=== PATIENT | male | born 1965 | race Caucasian/White ===

== ENCOUNTER 2017-06-14 15:31 | Emergency (ER) | payer OTHER ==
--- NOTE | 2017-06-14 15:57 | ED Physician Chart ---
ED Chief Complaint/HPI - Patient Information Date Seen:: 06/14/17 Time Seen:: 15:56 Chief Complaint:: INFECTION LEFT HAND BEGAN 1 WK AGO History of Present Illness:: this 51-year-old male sustained a minor paper cut to the palm of his left hand one week ago. Over the past 2 to 3 days the patient has experienced increased swelling and pain in his left hand. It extends to just above the wrist. He rates the pain as a 7/10 severity and exacerbating factors include pressure over the palm. He's uncertain if he has had any fever and denies chills or sweats. His past medical history is for borderline diabetes and hypertension. Historian:: Patient ED Review of Systems - Review of Systems General/Constitutional: No chills, No weakness, No diaphoresis, Edema ( EDEMA OF THE LEFT HAND EXTENDING TO JUST ABOVE THE WRIST.) Skin: Skin lesions ( Tiny cut to the center of the left palm. 2 mm in length.) Head: No headache Eyes: No loss of vision, No pain, No diplopia Neck: Swelling Cardio Vascular: No chest pain, No PND Pulmonary: No SOB, No cough, No sputum GI: No nausea, No vomiting, No diarrhea ( Patient is uncertain if he has had any fever.), No pain G/U: No dysuria Endocrine: Polyuria, Polydipsia Psychiatric: No prior psych history, No depression, No suicidal ideation Hematopoietic: No bruising, No lymphadenopathy Allergic/Immuno: No urticaria, No angioedema Neurological: No syncope, Weakness ( Weakness is limited to the left blocker automatic.), No paresthesia, No seizure, No dizziness, No confusion Family Medical History - Family Member Mother Hx Family Hypertension: Yes Hx Family Diabetes: Yes ED Physical Exam - Physical Examination General/Constitutional: Well-developed, well-nourished, Alert, Non-toxic appearing, Ambulatory Other Gen/Cons comments:: Appears to be in mild distress from his complained of pain in the left hand. Head: Atraumatic Eyes: Lids, conjuctiva normal, PERRL, EOMI Other Skin comments:: The skin is normal except for erythema and swelling involving the left hand. There was minimal expansion of the erythema proximal to the wrist. On palpation there is tenderness in the palm and over the flexor surfaces of the second through the fifth digits. ENMT: External ears, nose nl, Nasal exam nl, Lips, teeth, gums nl, Oropharynx nl , Tonsils nl Respiratory: Nl effort/Exclusion, Clear to Auscultation, No Wheeze/Rhonchi/Rales Cardio Vascular: No murmur, gallop, rubs, NL S1 S2 Other Cardio Vascular comments:: Impulses in all four extremities. GI: No tenderness/rebounding/guarding, No organomegaly, No hernia, Nondistended , No mass/bruits : No CVA tenderness Other Extremities comments:: See above description of the left hand and wrist area. Neuro/Psych: Alert/oriented, Normal sensory exam, Judgement/insight normal, Mood normal, Normal gait, No focal deficits Misc: Normal back, No paraspinal tenderness ED Labs/Radiology/EKG Results - Lab Results Results: Laboratory Tests 06/14/17 06/14/17 06/14/17 16:16 16:16 16:16 WBC 13.6 H RBC 5.45 Hgb 15.3 Hct 45.1 MCV 82.8 MCH 28.0 MCHC Differential 33.9 RDW 12.1 Plt Count 240 MPV 8.5 Neutrophils % 81.5 H Lymphocytes % 11.0 L Monocytes % 6.5 Eosinophils % 0.8 Basophils % 0.2 Sodium 129 L Potassium 4.7 Chloride 97 L Carbon Dioxide 28.8 Anion Gap 7.9 BUN 25 Creatinine 1.2 Est GFR ( Amer) > 60.0 Est GFR (Non-Af Amer) > 60.0 BUN/Creatinine Ratio 20.8 Glucose 506 H* Whole Bld Lactic Acid 1.48 Calcium 8.9 HYPERGLYCEMIA, MARKED. HYPONATREMIA ( Probable pseudo-hyponatremia due to the high glucose level.) BC shows a moderate leukocytosis of 13.6 K. No anemia is present and platelets appear normal. Patients lactic acid is within the normal range. X-ray studies of the hand were not obtained. ED Assessment - Assessment General Assessment: CASE SUMMARY: this 51-year-old right-handed male presents with swelling and pain in his left hand and wrist that began approximately 2 to 3 days ago. One week ago the patient had a minor paper cut to the palm of the left hand. On physical examination he has erythema involving the palm and tenderness in the palm and along the flexor tendon sheets. No regional lymphadenopathy was present. He was afebrile that he has a mild psychosis. He was treated with 2 g of IV Ancef and 1 g of vancomycin. Hyperglycemia was addressed by hydrating with 2000 mL of normal saline. My working diagnosis was infectious Tenosynovitis. the patient's insurance carrier referred me to Dr. Diamond, who agreed to admit the patient and obtain orthopedic consultation. After the patient had received the IV antibiotics he had a marked decrease in pain and wanted to leave the ER and follow up with his primary care physician this coming week. I had an extended discussion with him regarding the risks of not getting IV antibiotics and possible drainage of the infected left hand. To further complicate the situation the patient had a glucose in the 500 range without ketoacidosis but new onset of diabetes. The patient stated that he wished to be discharged with oral antibiotics and that if he got worse he would return to the emergency department over the weekend. I had the patient sign out against medical advice and he was discharged with a prescription for Bactrim DS to be taken twice a day for 10 days and cephalexin 500 mg to be taken four times a day. I reassured him that his signing out against medical advice does not compromise being able to return if his symptoms worsen. MDM DDX INFECTED LEFT HAND: NOT A Paranychia based on physical examination. NOT A felon based on physical examination. NOT A Foreign body based on the mechanism of injury. NOT Necrotizing fasciitis based on history and physical exam. ED Septic Shock - . Is Septic Shock (SBP<90, OR Lactate>4 mmol\L) present?: No ED Reassessment (Disposition) - Reassessment Reassessment Condition:: Improved - Diagnosis Diagnosis:: NEW ONSET DIABETES WITH MARKED HYPERGLYCEMIA. TENOSYNOVITIS OF THE LEFT HAND. - Aftercare/Follow up Instructions Aftercare/Follow-Up Instructions:: Counseled pt regarding lab results/diagnosis & need follow up - Patient Disposition Discharge/Transfer:: Against Medical Advice (Risks of septic shock, ketoacidosis , and possible discussed with patient prior to his leaving against medical advice. The patient has the capacity to make decisions and decided to leave with oral antibiotics and the option to return if his symptoms worsened.) Accepting Physician:: DR. DIAMOND ED Discharge Plan - Patient Disposition Admit/Discharge/Transfer: AGAINST MEDICAL ADVICE Condition at Disposition: Unchanged Prescriptions: Cephalexin [Cephalexin*] 500 mg PO QID #40 tab Sulfamethoxazole/Trimethoprim [Bactrim Ds Tablet] 1 tab PO BID #20 tab Instructions: Cellulitis, [id number] Additional Instructions: FOLLOW UP WITH YOUR DOCTOR IN 2-3 DAYS AND TO COME BACK TO ER IF SYMPTOMS WORSEN.TAKE YOUR PRESCRIPTIONS PRESCRIBED Forms: Work Release Form
[2017-06-14] MEDS ORDERED: Sodium Chloride 0.9% 2,000 ML IV ONE (16:07)
[2017-06-14 16:25] LABS: % BASOPHILS 0.2 % (0.0-2.0); % EOSINOPHILS 0.8 % (0.0-5.0); % MONOCYTES 6.5 % (2.0-10.0); % NEUTROPHILS 81.5 % (40.0-80.0); HEMATOCRIT 45.1 % (41.0-60); HEMOGLOBIN 15.3 gm/dL (12-16); MEAN CELL VOLUME 82.8 fl (80-99); MEAN CORPUSCULAR HGB CONC 33.9 pg (28.0-36.0); MEAN PLATELET VOLUME 8.5 fl; NEUTROPHILE ABSOLUTE 11.1 Th/cmm (1.8-8.0); PLATELET COUNT 240 Th/cmm (150-400); RED BLOOD COUNT 5.45 Mil/cmm (4.30-5.70); RED CELL DISTRIBUTION WIDTH 12.1 % (11.5-20.0)
[2017-06-14 16:28] LABS: WHITE BLOOD COUNT 13.6 Th/cmm (4.8-10.8)
[2017-06-14 16:40] LABS: ANION GAP 7.9 (7.0-16.0); BUN - UREA NITROGEN 25 mg/dL (7-25); BUN/CREATININE RATIO 20.8; CALCIUM SERUM 8.9 mg/dL (8.6-10.3); CARBON DIOXIDE 28.8 mEq/L (21.0-31.0); CHLORIDE 97 mEq/L (98-107); CREATININE - SERUM 1.2 mg/dL (0.7-1.3); POTASSIUM SERUM 4.7 mEq/L (3.5-5.1); SODIUM SERUM 129 mEq/L (136-145)
[2017-06-14 16:56] LABS: GLUCOSE 506 mg/dL (70-105)
== END 2017-06-14 20:25 | disposition left against medical advice (07) ==
LOC: ER 15:31
DX: M65.9 Synovitis and tenosynovitis, unspecified (principal); E11.65 Type 2 diabetes mellitus with hyperglycemia
CPT/HCPCS: 99285; 96365; 96368; 36415; 83605; 85025; 83036; 80048; 87040 ×2; J0690 ×3; J3370 ×2; J7030

== ENCOUNTER 2017-06-17 09:36 | Emergency (ER) | payer OTHER ==
--- NOTE | 2017-06-17 10:18 | ED Physician Chart ---
ED Chief Complaint/HPI - Patient Information Date Seen:: 06/17/17 Time Seen:: 10:13 Chief Complaint:: l hand swollen History of Present Illness:: pt returns to ed. was seen here sat for l hand red/edema. was thought to have cellulitis..refused admission. glucose was 500. pt returns today says hand was better yest but today seems just as swollen as on friday. l palm is firm and sore and hard and he wonders if could have a abscess. he says he is taking keflex and bactrim ds as rxd ...but has made no follow up or med or diet modifications about the DM. in fact he is still telling me he has only "borderline DM" dx !! There was no f/u w PMD. Allergies:: Allergies Allergy/AdvReac Type Severity Reaction Status Date / Time No Known Allergies Allergy Verified 06/17/17 09:53 Vitals:: Vital Signs - 8 hr 06/17/17 09:45 Temp 97.0 F HR 92 RR 16 BP 163/99 O2 Sat % 98 Historian:: Patient ED Review of Systems - Review of Systems General/Constitutional: No fever, No chills, No weight loss, No weakness, No diaphoresis, No edema, No loss of appetite Skin: No skin lesions, No rash, No bruising Head: No headache, No light-headedness Eyes: No loss of vision, No pain, No diplopia ENT: No earache, No nasal drainage, No sore throat, No tinnitus Neck: No neck pain, No swelling, No thyromegaly, No stiffness, No mass noted Cardio Vascular: No chest pain, No palpitations, No PND, No orthopnea, No edema Pulmonary: No SOB, No cough, No sputum, No wheezing GI: No nausea, No vomiting, No diarrhea, No pain, No melena, No hematochezia, No constipation, No hematemesis G/U: No dysuria, No frequency, No hematuria Musculoskeletal: No bone or joint pain, No back pain, No muscle pain, Other (L hand swelling/pain) Endocrine: No polyuria, No polydipsia Psychiatric: No prior psych history, No depression, No anxiety, No suicidal ideation Hematopoietic: No bruising, No lymphadenopathy Allergic/Immuno: No urticaria, No angioedema Neurological: No syncope, No focal symptoms, No weakness, No paresthesia, No headache, No seizure, No dizziness, No confusion, No vertigo ED Past Medical History - Past Medical History Past Medical History: HTN ("borderline"), DM Social History: Non Smoker, No Alcohol Medication: Reviewed Family Medical History - Family Member Mother Hx Family Hypertension: Yes Hx Family Diabetes: Yes ED Physical Exam - Physical Examination General/Constitutional: Awake, Well-developed, well-nourished, Alert, No distress, GCS 15, Non-toxic appearing, Ambulatory Other Gen/Cons comments:: mod overweight. aklert. nontoxic. conversive. pleasant. wn/wh. Head: Atraumatic Eyes: Lids, conjuctiva normal, PERRL, EOMI Skin: Nl inspection, No rash, No skin lesions, No ecchymosis, Well hydrated, No lymphadenopathy ENMT: External ears, nose nl, Nasal exam nl, Lips, teeth, gums nl Neck: Nontender, Full ROM w/o pain, No JVD, No nuchal rigidity, No bruit, No mass, No stridor Respiratory: Nl effort/Exclusion, Clear to Auscultation, No Wheeze/Rhonchi/Rales Cardio Vascular: RRR, No murmur, gallop, rubs, NL S1 S2 GI: No tenderness/rebounding/guarding, No organomegaly, No hernia, Normal BS's, Nondistended, No mass/bruits, No McBurney tenderness : No CVA tenderness Extremities: No tenderness or effusion, Full ROM, normal strength in all extremities, No edema, Normal digits & nails Other Extremities comments:: l hand is doughy edema. sltly red but not hot. ok motility of fingers. central palm is tense w edema and some blanching of central palm. ok cap refill and digital sensation ok. Neuro/Psych: Alert/oriented, DTR's symmetric, Normal sensory exam, Normal motor strength, Judgement/insight normal, Mood normal, Normal gait, No focal deficits Misc: normal gait, Normal back, No paraspinal tenderness ED Labs/Radiology/EKG Results - Lab Results Results: Laboratory Tests 06/17/17 06/17/17 06/17/17 10:24 10:30 10:30 WBC 16.1 H RBC 5.26 Hgb 14.9 Hct 43.2 MCV 82.2 MCH 28.3 MCHC Differential 34.5 RDW 12.1 Plt Count 250 MPV 8.3 Band Neutrophils % 2 Neutrophils (Manual) 80 Lymphocytes 11 L Monocytes 5 Eosinophils 2 Sodium Potassium Chloride Carbon Dioxide Anion Gap BUN Creatinine Est GFR ( Amer) Est GFR (Non-Af Amer) BUN/Creatinine Ratio Glucose POC Glucose 255 H Whole Bld Lactic Acid 1.29 Calcium Total Bilirubin AST ALT Alkaline Phosphatase Total Protein Albumin Globulin Albumin/Globulin Ratio 06/17/17 10:30 WBC RBC Hgb Hct MCV MCH MCHC Differential RDW Plt Count MPV Band Neutrophils % Neutrophils (Manual) Lymphocytes Monocytes Eosinophils Sodium 127 L Potassium 4.1 Chloride 98 Carbon Dioxide 19.6 L Anion Gap 13.5 BUN 33 H Creatinine 1.4 H Est GFR ( Amer) > 60.0 Est GFR (Non-Af Amer) 56.8 BUN/Creatinine Ratio 23.6 Glucose 275 H POC Glucose Whole Bld Lactic Acid Calcium 9.1 Total Bilirubin 0.6 AST 14 ALT 16 Alkaline Phosphatase 69 Total Protein 7.2 Albumin 3.7 L Globulin 3.5 Albumin/Globulin Ratio 1.1 - Radiology Results Results: xray left hand - no fx, no f.b. ED Septic Shock - . Is Septic Shock (SBP<90, OR Lactate>4 mmol\\L) present?: No - <6hrs of presentation: Vital Signs: Vital Signs - 8 hr 06/17/17 09:45 Temp 97.0 F HR 92 RR 16 BP 163/99 O2 Sat % 98 ED Reassessment (Disposition) - Reassessment Reassessment:: pt received ancef 2g iv. 12;30p case dw dr Pastor...ins provider ..he is admitting to [facility].. asks for Vanco dose iv also. Reassessment Condition:: Improved - Diagnosis Diagnosis:: cellulitis left hand unctrld/new onset DM poor ctrl HTN - Patient Disposition Admitted to:: Med/Surg Condition at Disposition:: Improved
[2017-06-17 10:42] LABS: HEMATOCRIT 43.2 % (41.0-60); HEMOGLOBIN 14.9 gm/dL (12-16); MEAN CELL VOLUME 82.2 fl (80-99); MEAN CORPUSCULAR HEMOGLOBIN 28.3 pg (26.0-30.0); MEAN CORPUSCULAR HGB CONC 34.5 pg (28.0-36.0); MEAN PLATELET VOLUME 8.3 fl; PLATELET COUNT 250 Th/cmm (150-400); RED BLOOD COUNT 5.26 Mil/cmm (4.30-5.70); RED CELL DISTRIBUTION WIDTH 12.1 % (11.5-20.0)
[2017-06-17 10:44] LABS: WHITE BLOOD COUNT 16.1 Th/cmm (4.8-10.8)
[2017-06-17 11:01] LABS: ALB/GLOB RATIO 1.1 (1.0-1.8); ALKALINE PHOSPHATASE 69 U/L (34-104); ANION GAP 13.5 (7.0-16.0); BAND NEUTROPHILE 2 % (0-10); BILIRUBIN,TOTAL 0.6 mg/dL (0.3-1.0); BUN - UREA NITROGEN 33 mg/dL (7-25); BUN/CREATININE RATIO 23.6; CALCIUM SERUM 9.1 mg/dL (8.6-10.3); CARBON DIOXIDE 19.6 mEq/L (21.0-31.0); CHLORIDE 98 mEq/L (98-107); CREATININE - SERUM 1.4 mg/dL (0.7-1.3); EOSINOPHIL 2 % (0-5); GLUCOSE 275 mg/dL (70-105); NEUTROPHILS 80 % (40-80); POTASSIUM SERUM 4.1 mEq/L (3.5-5.1); SGOT 14 U/L (13-39); SGPT/ALT 16 U/L (7-52); SODIUM SERUM 127 mEq/L (136-145); TOTAL CELLS COUNTED 100
[2017-06-17] MEDS ORDERED: ceFAZolin 2 GM in Sodium Chloride 0.9% 100 ML IV ONE (11:03)
[2017-06-17] MEDS ORDERED: INSULIN ASPART, RECOMBINANT 100 UNITS/ML SUBQ ONE ×2 (11:09→11:15)
--- NOTE | 2017-06-17 11:24 | Diagnostic Imaging Report ---
Left hand 3 views Indication: Pain rule out fracture, rule out abscess Comparison: none Findings: There is diffuse soft tissue swelling. Mild degenerative changes are noted. No evidence of an acute fracture or radiopaque foreign body. There may have been old trauma to the radial styloid. Impression: No evidence of an acute fracture. Diffuse soft tissue swelling which may be due to underlying cellulitis. There is no x-ray evidence of osteomyelitis. If indicated MRI follow-up may also be obtained. In the setting of trauma, if clinical symptoms persist and there is continued concern for an occult fracture, follow up exams in 5-7 days is suggested.
[2017-06-17] MEDS ORDERED: Morphine Sulfate 2 mg/mL 1mL Syr IVP PRN (13:26)
[2017-06-17] MEDS ORDERED: Hydrocodone/APAP 5mg/325mg Tab PO PRN (13:26)
[2017-06-17] MEDS ORDERED: Albuterol Nebulizer 2.5mg/3mL HHN PRN (13:26)
[2017-06-17] MEDS ORDERED: Sodium Chloride 0.9% 1,000 ML IV SCH (13:30)
[2017-06-17] MEDS ORDERED: Hydrocodone/APAP 5mg/325mg Tab ONE (13:50)
--- NOTE | 2017-06-17 14:27 | General Progress Note ---
Subjective - Review of Systems Service Date: 06/17/17 Events since last encounter: update- 2;25pm insurance company informs us of delay w [facility] admit bed. ask me to talk w Dr Hodges at [facility] about admit there. case reviewed w Dr Hodges at this time and he is accepting. no change in DX condition stable Objective - Results Result Diagrams: 06/17/17 10:30 06/17/17 10:30 Recent Labs: Laboratory Last Values WBC 16.1 Th/cmm (4.8-10.8) H 06/17/17 10:30 RBC 5.26 Mil/cmm (4.30-5.70) 06/17/17 10:30 Hgb 14.9 gm/dL (12-16) 06/17/17 10:30 Hct 43.2 % (41.0-60) 06/17/17 10:30 MCV 82.2 fl (80-99) 06/17/17 10:30 MCH 28.3 pg (26.0-30.0) 06/17/17 10:30 MCHC Differential 34.5 pg (28.0-36.0) 06/17/17 10:30 RDW 12.1 % (11.5-20.0) 06/17/17 10:30 Plt Count 250 Th/cmm (150-400) 06/17/17 10:30 MPV 8.3 fl 06/17/17 10:30 Band Neutrophils % 2 % (0-10) 06/17/17 10:30 Neutrophils (Manual) 80 % (40-80) 06/17/17 10:30 Lymphocytes 11 % (20-50) L 06/17/17 10:30 Monocytes 5 % (2-10) 06/17/17 10:30 Eosinophils 2 % (0-5) 06/17/17 10:30 Sodium 127 mEq/L (136-145) L 06/17/17 10:30 Potassium 4.1 mEq/L (3.5-5.1) 06/17/17 10:30 Chloride 98 mEq/L (98-107) 06/17/17 10:30 Carbon Dioxide 19.6 mEq/L (21.0-31.0) L 06/17/17 10:30 Anion Gap 13.5 (7.0-16.0) 06/17/17 10:30 BUN 33 mg/dL (7-25) H 06/17/17 10:30 Creatinine 1.4 mg/dL (0.7-1.3) H 06/17/17 10:30 Est GFR ( Amer) > 60.0 ml/min (>90) 06/17/17 10:30 Est GFR (Non-Af Amer) 56.8 ml/min 06/17/17 10:30 BUN/Creatinine Ratio 23.6 06/17/17 10:30 Glucose 275 mg/dL (70-105) H 06/17/17 10:30 POC Glucose 255 MG/DL (70 - 105) H 06/17/17 10:24 Whole Bld Lactic Acid 1.29 mmol/L (0.60-1.99) 06/17/17 10:30 Calcium 9.1 mg/dL (8.6-10.3) 06/17/17 10:30 Total Bilirubin 0.6 mg/dL (0.3-1.0) 06/17/17 10:30 AST 14 U/L (13-39) 06/17/17 10:30 ALT 16 U/L (7-52) 06/17/17 10:30 Alkaline Phosphatase 69 U/L (34-104) 06/17/17 10:30 Total Protein 7.2 gm/dL (6.0-8.3) 06/17/17 10:30 Albumin 3.7 gm/dL (4.2-5.5) L 06/17/17 10:30 Globulin 3.5 gm/dL 06/17/17 10:30 Albumin/Globulin Ratio 1.1 (1.0-1.8) 06/17/17 10:30 - Physical Exam Vitals and I&O: Vital Signs Temp 97.0 F 06/17/17 09:45 Pulse 92 06/17/17 09:45 Resp 16 06/17/17 09:45 BP 163/99 06/17/17 09:45 Pulse Ox 98 06/17/17 09:45 Intake & Output 06/16/17 06/17/17 06/17/17 18:59 06:59 18:59 Weight (lbs) 124.738 kg Active Medications: Current Medications Acetaminophen/Hydrocodone Bitart ([place] 5mg/325mg) 1 tab PO Q4H PRN PRN Reason: Pain (Severe) Stop: 08/16/17 13:25 Last Admin: 06/17/17 13:55 Dose: 1 tab Albuterol Sulfate (Albuterol 2.5mg/3ml Neb Ud) 2.5 mg HHN Q2HRT PRN PRN Reason: Shortness of Breath or Wheeze Stop: 08/16/17 13:25 Cefazolin Sodium 2 gm/ Sodium (Chloride) 100 mls @ 100 mls/hr IV X1 ONE Stop: 06/17/17 12:02 Last Admin: 06/17/17 11:56 Dose: 100 mls/hr Vancomycin HCl 1 gm/ Sodium (Chloride) 250 mls @ 165 mls/hr IV X1 ONE Stop: 06/17/17 14:07 Last Admin: 06/17/17 13:30 Dose: 165 mls/hr Sodium Chloride (Nacl 0.9%) 1,000 mls @ 80 mls/hr IV .[id number] ANTONIO Stop: 08/16/17 13:29 Insulin Aspart (Novolog) 4 units SUBQ X1 ONE PRN Reason: Protocol Stop: 06/17/17 11:10 Last Admin: 06/17/17 11:23 Dose: 4 units Insulin Aspart (Novolog) 0 units SUBQ ACHS ANTONIO PRN Reason: Protocol Stop: 08/16/17 16:29 Morphine Sulfate (Morphine) 2 mg IVP Q4H PRN PRN Reason: Pain (Severe) Stop: 08/16/17 13:25 Zolpidem Tartrate (Ambien) 10 mg PO HS PRN PRN Reason: Insomnia Stop: 08/16/17 13:25
[2017-06-17] MEDS ORDERED: INSULIN ASPART, RECOMBINANT 100 UNITS/ML SUBQ SCH (16:30)
--- NOTE | 2017-06-17 16:45 | History & Physical ---
ADMIT DATE: 06/17/2017 CHIEF COMPLAINT: Swollen left hand x 5 days. HISTORY OF PRESENT ILLNESS: This is a 51-year-old male who has a 5-day history of left hand swelling. According to the patient, he was just here last week on 06/14/2017 and he was discharged with p.o. antibiotics. He states that his swelling has gotten down, but this afternoon, swelling started to come up again. The patient denied any fevers or any chills. For this reason, the patient went to the ER to be evaluated. In the ER, the patient was also noted to have an elevated glucose level 255. PAST MEDICAL HISTORY: Borderline diabetes. PAST SURGICAL HISTORY: Left ankle surgery. SOCIAL HISTORY: The patient denies any alcohol or illicit drug usage or any tobacco smoking. FAMILY HISTORY: Noncontributory. REVIEW OF SYSTEMS: GENERAL: Denies any fevers, any chills. CARDIOVASCULAR: Denies chest pain. RESPIRATORY: Denies any shortness of breath. GASTROINTESTINAL: Denies nausea, vomiting, abdominal pain. GENITOURINARY: Denies any dysuria. All other systems reviewed by me and are negative. PHYSICAL EXAMINATION: GENERAL: The patient is well developed, well nourished, no acute distress. VITAL SIGNS: Temperature 97.0, heart rate 92, blood pressure 163/99, respirations 16, O2 98%. HEENT: Head; normocephalic, atraumatic. NECK: Supple. No mass. LUNGS: Clear bilaterally. ABDOMEN: Soft, nontender. Left hand is noted with +3 nonpitting edema. The patient's middle palm is noted with tenderness. LABORATORY DATA: WBC 16.1, H and H 14.9 and 43.2, platelets 250. Sodium 127, potassium 4.1, chloride 98, BUN 33, creatinine 1.4. Glucose level 275, albumin 3.7. DIAGNOSTICS: The patient had x-ray done and the impression is no evidence of acute fracture, diffuse soft tissue swelling, which may be due to underlying cellulitis. There is no x-ray evidence of osteomyelitis. ASSESSMENT: Left hand cellulitis, diabetes, out of control, hyponatremia, elevated BUN and creatinine and leukocytosis. PLAN: The patient to be admitted to the med/surg unit. We will get a surgical consult, place the patient on empiric IV antibiotics. We will await for patient's ultrasound of the hand. We will monitor the patient's glucose level. Monitor the patient's labs. We will continue to monitor the patient. JOB# [id number]
== END 2017-06-17 16:45 | disposition short-term general hospital (02) ==
LOC: ER 09:36
DX: L03.114 Cellulitis of left upper limb (principal); I10 Essential (primary) hypertension; E11.9 Type 2 diabetes mellitus without complications
CPT/HCPCS: 99285; 96365; 96367; 96372; 73120; 36415; 36416; 82948; 83605; 85007; 85027; 80053; 87040 ×2; J0690; J3370; J1815; J7030